=== PATIENT | male | born 1940 | race Caucasian/White ===

== ENCOUNTER 2018-07-03 09:22 | Inpatient (IN) | payer MEDICARE, OTHER ==
[2018-07-03] VITALS (390 sets, daily range): BP systolic 110–127; BP diastolic 71–79; PULSE 76–92; TEMP 97.6–98.1; O2SAT 85–94
[~2018-07-03] VITALS: Ht 193 cm; Wt 108.1 kg
[2018-07-03] MEDS ORDERED: ASPIRIN 81M81 MG/TA2 PO (09:36)
[2018-07-03] MEDS ORDERED: MASON NATURAL1200 MG PO (09:36)
[2018-07-03] MEDS ORDERED: NORVASC 10MG10 MG PO (09:36)
[2018-07-03] MEDS ORDERED: GLUCOPHAGE1000 MG PO (09:36)
[2018-07-03] MEDS ORDERED: COZAAR100 MG PO (09:37)
[2018-07-03] MEDS ORDERED: ZOCOR 20MG20 MG PO (09:37)
[2018-07-03] MEDS ORDERED: OYSCO 500 + D 51 TAB PO (09:38)
[2018-07-03 10:00] LABS: PROTHROMBIN TIME 11.9 SECONDS (9.7-12.8)
[2018-07-03 10:01] LABS: BASO % 0.4 % (0.0-2.0); EOS # 0.3 (0.0-0.7); EOS % 3.4 % (0-4.0); GRAN # 4.2 (1.4-6.5); GRAN % 56.5 % (42.2-75.2); HEMATOCRIT 47.5 % (42.0-52.0); HEMOGLOBIN 15.8 g/dl (13.5-18.0); LYMPH # 2.4 (1.2-3.4); LYMPH % 32.6 % (20.0-51.0); MEAN CELL VOLUME 83 fl (80.0-100.0); MEAN CORPUSCULAR HEMOGLOBIN 28 pg (27.0-31.0); MEAN CORPUSCULAR HGB CONC 33 g/dl (33.0-37.0); MEAN PLATELET VOLUME 11.9 fl (7.4-10.4); MONO # 0.5 (0.1-0.6); MONO % 6.8 % (1.7-9.3); PLATELET COUNT 251 K/mm3 (130-400); RED BLOOD COUNT 5.74 M/mm3 (4.20-5.60); REDCELL DISTRIBUTION WIDTH-CV 14.1 % (11.5-14.5)
[2018-07-03 10:07] LABS: ALANINE AMINOTRANSFERASE 33 U/L (21-72); ALBUMIN 4.4 gm/dL (3.5-5.0); ALKALINE PHOSPHATASE 86 U/L (50-136); ANION GAP 14 mmol/L (7-16); AST,SGOT 29 U/L (15-37); BILIRUBIN,TOTAL 0.5 mg/dL (0.0-1.0); BLOOD UREA NITROGEN 18 mg/dL (9-20); CALCIUM 9.8 mg/dL (8.4-10.2); CARBON DIOXIDE 23 mmol/L (22-30); CHLORIDE 102 mmol/L (98-107); GLUCOSE 274 mg/dL (74-106); LIPASE 100 U/L (23-300); POTASSIUM 4.9 mmol/L (3.4-5.0); SODIUM 139 mmol/L (137-145); TOTAL PROTEIN 7.5 gm/dL (6.4-8.2)
[2018-07-03 10:52] LABS: TROPONIN-I < 0.012 ng/mL (0.000-0.035)
--- NOTE | 2018-07-03 12:15 | NUR ---
Cardizem infusing at 15mg/hr on arrival, no change at this time.
--- NOTE | 2018-07-03 12:15 | NUR ---
Patient admitted to ICU 7 via cart from ED with RN at side. Stands and transferred to bed. Sl. off balance with transfer. Monitors applied, continues to be in Afib with controlled rate. [place] to room, call light given. to bedside and admission assessment complete.
[2018-07-03] MEDS ORDERED: REFRESH OPTIVE10 M2 OP (13:52)
--- NOTE | 2018-07-03 18:20 | NUR ---
Bedside report given to Brianna BARNEY
--- NOTE | 2018-07-03 19:30 | NUR ---
Assessment complete; reports some pressure to left chest with inspiration. States it is much improved since arrival to the unit and starting the cardizem. Unable to rate it on number scale. Continues to be in sinus rhythm on cardizem drip. tooth brush and wet wipes provided for personal cleansing. No concerns at this time.
[2018-07-04] VITALS (355 sets, daily range): BP systolic 112–143; BP diastolic 74–82; PULSE 62–86; TEMP 97.4–98.7; O2SAT 84–96
--- NOTE | 2018-07-04 00:30 | NUR ---
Assisted patient up to use the bathroom. Gait slighlty unsteady; non-slip socks and gait belt utilized.
[2018-07-04 05:38] LABS: BASO % 0.5 % (0.0-2.0); EOS # 0.2 (0.0-0.7); EOS % 3.6 % (0-4.0); GRAN # 2.7 (1.4-6.5); HEMATOCRIT 43.6 % (42.0-52.0); HEMOGLOBIN 14.8 g/dl (13.5-18.0); LYMPH # 2.4 (1.2-3.4); LYMPH % 41.2 % (20.0-51.0); MEAN CELL VOLUME 81 fl (80.0-100.0); MEAN CORPUSCULAR HEMOGLOBIN 28 pg (27.0-31.0); MEAN CORPUSCULAR HGB CONC 34 g/dl (33.0-37.0); MEAN PLATELET VOLUME 11.4 fl (7.4-10.4); MONO # 0.4 (0.1-0.6); MONO % 7.4 % (1.7-9.3); PLATELET COUNT 196 K/mm3 (130-400); RED BLOOD COUNT 5.39 M/mm3 (4.20-5.60)
[2018-07-04 05:47] LABS: ANION GAP 8 mmol/L (7-16); BLOOD UREA NITROGEN 18 mg/dL (9-20); CALCIUM 8.9 mg/dL (8.4-10.2); CARBON DIOXIDE 23 mmol/L (22-30); CHLORIDE 106 mmol/L (98-107); CHOLESTEROL 133 mg/dL (120-200); CHOLESTEROL RISK RATIO 3.5; CREATININE, serum 0.87 (0.66-1.25); GLUCOSE 127 mg/dL (74-106); HDL CHOLESTEROL 37 mg/dL; LDL CHOLESTEROL 58 mg/dL; POTASSIUM 4.3 mmol/L (3.4-5.0); SODIUM 137 mmol/L (137-145); TRIGLYCERIDE 189 mg/dL
[2018-07-04 06:00] LABS: TROPONIN-I < 0.012 ng/mL (0.000-0.035)
--- NOTE | 2018-07-04 07:15 | NUR ---
Bedside report given to ECTOR Gipson. Patient care transfered.
--- NOTE | 2018-07-04 08:30 | NUR ---
0830:While recieving ECHO and talking with MD Cathleen pt began to have slurred speech and difficulty speaking and finding words. MD Helen notified. Neurological assessment completed. 0841:MD Helen at bedside - speech symptoms have resoloved. CT ordered. [address] scan - negative findings reported to MD Helen from radiologist. 1020:mechatronics technician here to picked edge sewing machine operator pt to brain MRI and Carotid ultrasound. 1115: pt arrived back on unit. Scans completed without difficulty. VSS. Call light within reach. Pt remains asymptomatic.
[2018-07-04 09:16] LABS: PROTHROMBIN TIME 11.9 SECONDS (9.7-12.8)
[2018-07-04 09:33] LABS: PARTIAL THROMBOPLASTIN TIME 39.2 SECONDS (26.0-37.0)
--- NOTE | 2018-07-04 15:22 | NUR ---
JUANITO arizmendi met with the patient to discuss discharge plan. The patient lives in [place] with his (Roger). The patient does not use any assistive devices at home and reports indpendence with ADLs. The patient's PCP is Dr. Easton Mcknight and he receives his medications from [facility]. The patient states that he has a completed DPOA-HC completed with Dr. Mcknight's office. JUANITO arizmendi to request a copy. The patient plans to return home upon discharge. Patient is expected to move up to the floor today, 07/04. No identified needs at this time. JUANITO to continue to follow and follow up with PT/OT for recommendations.
--- NOTE | 2018-07-04 18:19 | NUR ---
Report phoned to ECTOR Hall
--- NOTE | 2018-07-04 22:54 | NUR ---
Patient assessed. Denies having pain and discomfort. Voices no needs or concenrs at this time. Speach clear, pupils round and react equally and immediately to light, hand consumer experience consultant strong and equal, alert and oriented x 4, gait is steady. Periperal IV to right forearm patent, and without redness, warmth, swelling, and pain. Resting in recliner watching TV at this time. call light is within reach.
[2018-07-05 00:24] VITALS: BP 138/79; PULSE 83; TEMP 98.7
[2018-07-05 04:20] VITALS: BP 121/79; PULSE 75; TEMP 97.6
--- NOTE | 2018-07-05 05:57 | NUR ---
Patient has denied having pain and discomfort throughout the night. Has voiced no needs or concerns. Resting in bed with eyes closed at this time. Call light is within reach.
--- NOTE | 2018-07-05 07:15 | NUR ---
Received report, patient is up in recliner eating breakfast. States he is feeling great and that he is hoping to be discharged today. Denies having any pain. Call light is within reach.
[2018-07-05 07:56] VITALS: BP 141/71; PULSE 81; TEMP 98.1
--- NOTE | 2018-07-05 09:34 | NUR ---
Initial visit; Patient thanked Computer Numerical Control Operator for looking in on him and offering God's blessings. Patient states he is doing "ok".
[2018-07-05] MEDS ORDERED: ELIQUIS 5MG PO (10:19)
[2018-07-05] MEDS ORDERED: LOPRESSOR 225 MG/TAB PO (10:19)
[2018-07-05 11:59] VITALS: BP 132/81; PULSE 66; TEMP 97.9
--- NOTE | 2018-07-05 15:35 | NUR ---
Patient escorted out to car at front entrance VIA wheelchair. All belongings sent with patient along with discharge information that he verbalized with understanding.
== END 2018-07-05 13:00 | disposition home or self-care (01) | DRG 309 ==
LOC: COL.ER 09:22 → ICU 11:06 → MEDICAL 07-04 18:43
PROVIDERS: Emergency Medicine; Physician Assistant; ADMIT Internal Medicine
DX: I48.91 Unspecified atrial fibrillation (principal); G45.9 Transient cerebral ischemic attack, unspecified; I10 Essential (primary) hypertension; E11.40 Type 2 diabetes mellitus with diabetic neuropathy, unspecified; E78.5 Hyperlipidemia, unspecified; Z87.891 Personal history of nicotine dependence
CPT/HCPCS: OP; 99223-AI; 99239; A9585; J1650; J1815; J7030

== ENCOUNTER 2019-01-06 10:06 | Emergency (ER) | payer MEDICARE, OTHER ==
[~2019-01-06] VITALS: Ht 185.4 cm; Wt 104.5 kg
[~2019-01-06 10:06] MED LIST: ASPIRIN 81M81 MG/TA2 PO; COZAAR100 MG PO; ELIQUIS 5MG PO; GLUCOPHAGE1000 MG PO; LOPRESSOR 225 MG/TAB PO; MASON NATURAL1200 MG PO; NORVASC 10MG10 MG PO; OYSCO 500 + D 51 TAB PO; REFRESH OPTIVE10 M2 OP; ZOCOR 20MG20 MG PO
[2019-01-06 10:10] VITALS: BP 127/58; TEMP 97.8
[2019-01-06 12:02] VITALS: PULSE 61
== END 2019-01-06 12:02 | disposition home or self-care (01) ==
LOC: COL.ER 10:06
DX: S91.102A Unspecified open wound of left great toe without damage to nail, initial encounter (principal); I48.91 Unspecified atrial fibrillation; E78.5 Hyperlipidemia, unspecified; E11.9 Type 2 diabetes mellitus without complications; Z79.01 Long term (current) use of anticoagulants; Z79.84 Long term (current) use of oral hypoglycemic drugs; W22.8XXA Striking against or struck by other objects, initial encounter; Y92.009 Unspecified place in unspecified non-institutional (private) residence as the place of occurrence of the external cause

== ENCOUNTER 2020-02-10 12:34 | Observation (INO) | payer MEDICARE, OTHER ==
[~2020-02-10] VITALS: Ht 185.4 cm; Wt 121.6 kg
[~2020-02-10 12:34] MED LIST changes: +AMARYL 2MG T2 MG/TAB PO; +CALCIUM CARB W/1 TA1 PO; +COLACE 100100 MG/CAP PO; +LOPRESSOR 550 MG/TAB PO; +NORCO 325 MG-51 TAB PO; +NORVASC 5MG5 MG/TAB PO; +ULTRAM 50MG TAB50 MG PO
[2020-02-10 13:11] LABS: BASO % 0.2 % (0.0-2.0); EOS # 0.1 (0.0-0.7); EOS % 1.3 % (0-4.0); GRAN # 7.6 (1.4-6.5); GRAN % 77.7 % (42.2-75.2); HEMATOCRIT 37.7 % (42.0-52.0); HEMOGLOBIN 12.7 g/dl (13.5-18.0); LYMPH % 10.2 % (20.0-51.0); MEAN CELL VOLUME 81 fl (80.0-100.0); MEAN CORPUSCULAR HEMOGLOBIN 27 pg (27.0-31.0); MEAN CORPUSCULAR HGB CONC 34 g/dl (33.0-37.0); MEAN PLATELET VOLUME 11.5 fl (7.4-10.4); MONO % 10.2 % (1.7-9.3); PLATELET COUNT 243 K/mm3 (130-400); RED BLOOD COUNT 4.68 M/mm3 (4.20-5.60)
[2020-02-10 13:13] LABS: INR 1.6 (0.8-3.0)
[2020-02-10 13:16] LABS: ALBUMIN 3.9 gm/dL (3.5-5.0); BILIRUBIN,TOTAL 0.9 mg/dL (0.0-1.0); CALCIUM 9.1 mg/dL (8.4-10.2); CREATININE, serum 0.99 (0.66-1.25); MAGNESIUM 2.2 mg/dL (1.6-2.3); PARTIAL THROMBOPLASTIN TIME 31.9 SECONDS (26.0-37.0); POTASSIUM 4.3 mmol/L (3.4-5.0)
[2020-02-10 13:43] LABS: TROPONIN-I 0.049 ng/mL (0.000-0.035)
[2020-02-10 13:46] LABS: TSH w REFLEX 2.57 uIU/mL (0.465-4.680)
[2020-02-10 20:51] LABS: TROPONIN-I 0.047 ng/mL (0.000-0.035)
[2020-02-10 21:49] VITALS: BP 143/65; PULSE 72; TEMP 97.9
[2020-02-10 23:26] VITALS: BP 123/60; PULSE 65; TEMP 98
--- NOTE | 2020-02-11 03:13 | NUR ---
Pt arrived on floor around 2129. Pt admission procedure completed and charted. Pt has deminished heart and lung sound. Pt denies N/V/D, numbness, tingling, SOA, pain. Pt is settled on his bed, call light is on reach. No further needs at this time.
[2020-02-11 04:00] VITALS: BP 119/64; PULSE 76; TEMP 98.3
--- NOTE | 2020-02-11 06:05 | NUR ---
Pt had an uneventful night. Slept through out the night. No further needs at this time.
[2020-02-11 06:43] LABS: BASO % 0.3 % (0.0-2.0); EOS # 0.4 (0.0-0.7); EOS % 5.7 % (0-4.0); GRAN # 4.5 (1.4-6.5); HEMOGLOBIN 11.7 g/dl (13.5-18.0); LYMPH # 1.5 (1.2-3.4); LYMPH % 20.6 % (20.0-51.0); MEAN CELL VOLUME 83 fl (80.0-100.0); MEAN CORPUSCULAR HEMOGLOBIN 28 pg (27.0-31.0); MEAN CORPUSCULAR HGB CONC 34 g/dl (33.0-37.0); MEAN PLATELET VOLUME 11.8 fl (7.4-10.4); MONO # 0.6 (0.1-0.6); PLATELET COUNT 216 K/mm3 (130-400)
[2020-02-11 06:51] LABS: HEMATOCRIT 34.7 % (42.0-52.0)
[2020-02-11 06:58] LABS: CALCIUM 8.6 mg/dL (8.4-10.2); CREATININE, serum 0.78 (0.66-1.25); POTASSIUM 3.9 mmol/L (3.4-5.0)
--- NOTE | 2020-02-11 07:00 | NUR ---
Report with ECTOR Snyder. Pt resting in bed with eyes closed, resp even and unlabored. Call light in reach.
[2020-02-11 08:59] VITALS: BP 135/61; PULSE 89; TEMP 97.8
--- NOTE | 2020-02-11 09:00 | NUR ---
Assessment complete. Pt sitting up in bed, A&O x 3. Physical assessment unremarkable. Pt reports pain to right pelvic region 2 out of 10 that increases significantly with movement of legs. Saline lock IV to left AC without s/s of complications. POC reviewed with pt. No further needs reported. Call light in reach.
[2020-02-11 12:28] VITALS: BP 132/80; PULSE 76; TEMP 97.8
--- NOTE | 2020-02-11 12:50 | NUR ---
Lead Sql Developer attended clinical rounds with the team. Patient is a readmit and was hospitalized from 02/06/20-02/09/20 for a right side pelvic fracture. Patient was discharged to [facility]. Patient presented to the ED last night and was admitted as [facility] could not accept last night. JUANITO met with patient who advised he would like to get back to [facility] if possible. JUANITO contacted Con at [facility] and faxed clinical updates. After review, Con advised they can accept patient back today and would not need a COVID test. JUANITO coordinated with Con to set transport time for 1330. JUANITO provided transport time to patient and RN, Janice. JUANITO contacted patient's , Willow to provide update and transport time. JUANITO faxed discharge orders. No additional needs at this time.
[2020-02-11 12:58] VITALS: BP 132/80; PULSE 76; TEMP 97.8
--- NOTE | 2020-02-11 13:19 | NUR ---
Report called to ECTOR Mcgee at [facility].
--- NOTE | 2020-02-11 13:35 | NUR ---
Pt discharged to [facility] via . Discharge paperwork with transportation staff.
== END 2020-02-11 13:40 ==
LOC: COL.ER 12:34 → MEDICAL 18:17
PROVIDERS: Emergency Medicine; Nurse Practitioner Family
DX: R55 Syncope and collapse (principal); I25.2 Old myocardial infarction; S32.591A Other specified fracture of right pubis, initial encounter for closed fracture; S22.41XA Multiple fractures of ribs, right side, initial encounter for closed fracture; I10 Essential (primary) hypertension; E78.5 Hyperlipidemia, unspecified; E11.9 Type 2 diabetes mellitus without complications; Z86.73 Personal history of transient ischemic attack (TIA), and cerebral infarction without residual deficits; Z79.01 Long term (current) use of anticoagulants; Z87.891 Personal history of nicotine dependence; I48.0 Paroxysmal atrial fibrillation; Z90.49 Acquired absence of other specified parts of digestive tract; Z79.4 Long term (current) use of insulin
CPT/HCPCS: G0378; J1160; J1815; J7030

== ENCOUNTER → 2020-06-03 | Outpatient (CLI) | payer MEDICARE, OTHER | LOC: COL.RAD 08:29 | DX: I63.9 Cerebral infarction, unspecified (principal); R47.1 Dysarthria and anarthria | CPT/HCPCS: A9585 ==

== ENCOUNTER 2023-07-12 10:15 | Inpatient (IN) | payer MEDICARE, OTHER ==
[~2023-07-12] VITALS: Ht 185.4 cm; Wt 106.5 kg
[~2023-07-12 10:15] MED LIST changes: +AMARYL4 MG PO; +CALCIUM 600-D 61 TAB PO; +GLUCOPHAGE500 MG/TAB PO; +HYZAAR 12.5 MG-1 TAB PO; +LOPRESSOR100 MG PO
[2023-07-12] MEDS ORDERED: VITAMIN B11000 MCG/M IM (12:51)
[2023-07-12] MEDS ORDERED: Naloxone 0.4 MG/ML VIAL IV PRN (14:30)
[2023-07-12] MEDS ORDERED: Acetaminophen 325 MG TAB PO PRN (14:30)
[2023-07-12] MEDS ORDERED: Docusate Sodium 100 MG CAP PO PRN (14:30)
[2023-07-12] MEDS ORDERED: Sennosides/Docusate 8.6-50 MG TAB PO PRN (14:30)
[2023-07-12] MEDS ORDERED: Polyethylene Glycol 3350 17 GM PDS PO PRN (14:30)
[2023-07-12 14:33] VITALS: BP 114/67; PULSE 73; TEMP 96.5
--- NOTE | 2023-07-12 14:34 | NUR ---
New pt arrived to unit from [facility] via wheelchair accompanied by his daughter & [id number]. Pt is a/o x4, pleasant. Pt required min asst to stand from wheelchair & transfer to recliner. Gait unsteady. Pt reporting BLE weakness. All skin is intact except for skin tear to left elbow that is covered w/ a Mepilex. Pt has scattered bruising to BUE from "IV's & blood" per pt. Daughter taking pt's wallet home. Pt has his cellphone at the bedside. Orientation provided to room/unit. Call light in reach. Chair alarm in place.
--- NOTE | 2023-07-12 16:37 | NUR ---
Pt sitting up in recliner watching tv. Pain/discomfort denied. Other needs denied. Call light in reach. Chair alarm in place.
[2023-07-12] MEDS ORDERED: metFORMIN 500 MG TAB PO SCH (17:00)
[2023-07-12 18:00] VITALS: BP 125/72; PULSE 93; TEMP 97.4
[2023-07-12 18:13] VITALS: BP_SYST 125
--- NOTE | 2023-07-12 18:29 | NUR ---
Min asst provided as pt stood from recliner to FWW. CGA provided as pt ambulated to the bathroom. Gait unsteady w/ FWW. Pt back to recliner after toileting w/ BLE elevated on the footrest. Pain/discomfort denied. Call light in reach. Chair alarm in place.
[2023-07-12 19:33] VITALS: BP_SYST 125
[2023-07-12] MEDS ORDERED: Simvastatin 20 MG **** subs to Atorvastatin 10 MG PO SCH (21:00)
[2023-07-12] MEDS ORDERED: Metoprolol Tartrate 50 MG TAB PO SCH (21:00)
[2023-07-12] MEDS ORDERED: Atorvastatin 10 MG TAB PO SCH (21:00)
[2023-07-12] MEDS ORDERED: Apixaban 5 MG TAB PO SCH (21:00)
--- NOTE | 2023-07-12 23:53 | NUR ---
patient lyin gin bed, alert and oriented x4. pt denies chest pain and shortness of breath. scattered bruising noted on upper extremities, right elbow skin tear with mepilex, clean dry and intact, right foot drop noted. pt has no further needs, qiestions or concerns at this time. fall precautions in place, call light within reach. will continue to monitor.
[2023-07-13 05:59] VITALS: BP 124/73; PULSE 63; TEMP 98
[2023-07-13 07:20] VITALS: BP_SYST 124
[2023-07-13] MEDS ORDERED: Losartan 50 MG TAB PO SCH (09:00)
[2023-07-13] MEDS ORDERED: amLODIPine 10 MG TAB PO SCH (09:00)
--- NOTE | 2023-07-13 09:16 | NUR ---
PT LAYING IN BED,ALERT AND OREINTEDX4. NO COMPLAINTS OF PAIN AT THIS TIME. PT HAD A BOWEL MOVEMENT THIS AM. ASSESSED PT AND GAVE MORNING MEDS. CALL LIGHT WITHIN REACH.
[2023-07-13 16:29] VITALS: BP 99/60; PULSE 103; TEMP 97.6
--- NOTE | 2023-07-13 16:37 | NUR ---
Manager Ed met with patient to complete initial intake. Patient lives in [place] with his , Willow (ph#[phone]) and also has a daughter, Arely (ph#[phone]). Patient sees Dr. Mcknight for primary care and obtains medications from either [facility] or [facility]. Patient has two sets of stairs in the home and has two walkers placed to assist him on each level. Patient stated the home is built into a hill. Patient has a rollator available here but stated PT advised it was too narrow. Patient advised he normally drives himself to medical appointments and family accompanies him. Patient has DPOA-HC in EMR designating Willow. SW contacted Willow to introduce herself and explain role on rehab team. SW will continue to follow for discharge recommendations and updates.
[2023-07-13 19:32] VITALS: BP_SYST 99
[2023-07-13 19:42] VITALS: BP 111/66
--- NOTE | 2023-07-13 22:04 | NUR ---
patient lying in bed, alert and oriented x4. pt denies chest pain and shortness of breath. scattered bruising on upper extremities, right elbow skin tear with mepilex dressing noted clean dry and intact. pt has no further needs, questions, or concerns at this time. fall precautions in place, call light within reach. will continue to monitor.
[2023-07-14] VITALS (16 sets, daily range): BP systolic 95–135; BP diastolic 48–77; PULSE 66–139; TEMP 97.4–97.8
--- NOTE | 2023-07-14 06:57 | NUR ---
Shift report received from night RN. No events reported overnight. Pt awake & resting supine in bed. Denies pain. Denies other needs. Call light in reach. Bed alarm on.
--- NOTE | 2023-07-14 08:51 | NUR ---
Pt called nurse asking for "pulse check". HR 118 apical. Pt reports his left arm feels "numb & heavy" & that this is a new sx for him. Chest pain, MOULTON, dizziness, lightheadedness denied. Hospitalist notified. Labs & EKG ordered by Hospitalist. RT notified of EKG order.
--- NOTE | 2023-07-14 09:01 | NUR ---
RT & Lab at the bedside.
--- NOTE | 2023-07-14 09:39 | NUR ---
Cardiology PA at the bedside for eval.
[2023-07-14 09:40] LABS: HEMOGLOBIN 14.9 g/dl (13.5-18.0); MEAN CELL VOLUME 80 fl (80.0-100.0); MEAN CORPUSCULAR HEMOGLOBIN 27 pg (27-31); MEAN CORPUSCULAR HGB CONC 34 g/dl (33.0-37.0); MEAN PLATELET VOLUME 11.9 fl (7.4-10.4); PLATELET COUNT 283 K/mm3 (130-400); RED BLOOD COUNT 5.48 M/mm3 (4.20-5.60); REDCELL DISTRIBUTION WIDTH-CV 13.6 % (11.5-14.5)
[2023-07-14 10:13] LABS: CALCIUM 9.2 mg/dL (8.4-10.2); CREATININE, serum 1.28 mg/dL (0.72-1.25); POTASSIUM 4.2 mEq/L (3.5-4.5)
[2023-07-14 10:24] LABS: TROPONIN-I 0.044 ng/mL (0.00-0.033)
--- NOTE | 2023-07-14 10:27 | NUR ---
Trop 0.044. Result reported to Dr. Fraga & TIFF Knight.
[2023-07-14] MEDS ORDERED: Amiodarone 200 MG TAB PO SCH (11:15)
[2023-07-14] MEDS ORDERED: Glucagon 1 MG VIAL IM PRN (11:45)
[2023-07-14] MEDS ORDERED: Dextrose (Glucose) 15 GM (4 x 3.75 GM) Chewable TABLET PACK PO PRN (11:45)
[2023-07-14] MEDS ORDERED: Dextrose 50% Water 25 GM/50 ML SYRINGE IV PRN (11:45)
[2023-07-14] MEDS ORDERED: Insulin Lispro (HumaLOG) SQ SCH (12:00)
--- NOTE | 2023-07-14 12:04 | NUR ---
Pt resting supine in bed. IV Amiodarone bolus & PO doses administered as ordered approx 30 min ago. Radial pulse 66. Pt denies pain/discomfort. Reports continued L arm/hand numbness & heaviness that is "getting better". Will continue to monitor.
--- NOTE | 2023-07-14 13:24 | NUR ---
Pt off unit w/ OT.
--- NOTE | 2023-07-14 14:04 | NUR ---
Pt back in room after working w/ OT. Pt reporting dizziness & continues to report that L arm heaviness & tingling still present but is "getting better". BP 95/84, HR 74. INT RFA w/ redness, tenderness, swelling. Pt sitting up in recliner w/ BLE elevated on footrest. Will continue to monitor.
--- NOTE | 2023-07-14 15:33 | NUR ---
Dr. Fields at bedside for eval.
--- NOTE | 2023-07-14 15:34 | NUR ---
Adoption Specialist contacted patient's , Willow and daughter, Arely to discuss scheduling a family meeting. Arely stated they will call back Monday with a time that works for them. SW met with patient who stated he has some cardiac issues this morning but feeling better. No questions or concerns at this time.
--- NOTE | 2023-07-14 22:09 | NUR ---
Shift assessment completed- see documentation. Upon entering pts room, he had just finished vomiting. He stated that he felt nauseous before dinner and vomited shortly after eating. This was his second time vomiting. He denies any other pain or discomfort. When asked, he stated that he did not want anything to help with the nausea. PM meds were adminsitered as ordered. Pt tolerated well. He denies any other needs at this time. I attempted to call JAN Andrea with this information. Still awaiting a return call.
[2023-07-15] VITALS (11 sets, daily range): BP systolic 103–145; BP diastolic 60–76; PULSE 65–74; TEMP 97.4–97.9
--- NOTE | 2023-07-15 08:46 | NUR ---
PT LAYING IN BED, ALERT AND ORIENTEDX4. NO COMPLAINTS OF PAIN AT THIS TIME. HR RATE IS NORMAL SINUS AT THIS TIME. PT TOLERATED BREAKFAST AND NO LONGER FEELS NAUSEAOUS. NO OTHER COMPLAINTS. ASSESSED AND GAVE MORNING MEDS. CALL LIGHT WITHIN REACH.
--- NOTE | 2023-07-15 09:37 | NUR ---
PT GOT NAUSEAUS AND STARTED THROWING UP SOME BILE WHILE WORKING WITH THERAPY. THERAPY BROUGHT PT BACK TO ROOM AND PT IS NOW RESTING IN CHAIR AND SAYS HE IS NOT FEELING NAUSAUS ANYMORE. PT FEELS WEAKER THROUGH THE WHOLE BODY. CHECKED HEART RATE, STILL NORMAL SINUS RHYTH.
[2023-07-15] MEDS ORDERED: Ondansetron 4 MG/2 ML VIAL IV PRN (12:45)
--- NOTE | 2023-07-15 12:58 | NUR ---
PT HAS BEEN NAUSEOUS OFF AND ON ALL DAY. CALLED DR. SAM TO GET AN ORDER FOR GE.
--- NOTE | 2023-07-15 17:30 | NUR ---
PT HAS NOT HAD ANY NAUSEA OR VOMMITTING EPISODES SINCE TAKING ZOFRAN TODAY.
[2023-07-16] VITALS (12 sets, daily range): BP systolic 104–129; BP diastolic 59–77; PULSE 57–67; TEMP 97.7–98.1
--- NOTE | 2023-07-16 05:56 | NUR ---
PT ALERT AND ORIENTED, DENIED ANY PAIN OR NAUSEA AT THE START OF THE SHIFT. AROUND 2129 CALLED OUT W C/O NAUSEA AND VOMITTING, ZOFRAN GIVEN ORDERED WELL SCHEDULED MEDICATIONS. PT IS ON TELE IN NSR. SLEPT WELL THROUGHOUT THE NIGHT. CALL LIGHT WITHIM REACH, BED ALARM ENGAGED.
--- NOTE | 2023-07-16 09:11 | NUR ---
PT LAYING IN BED, ALERT AND ORIENTEDX4. NO COMPLAINTS OF PAIN AT THIS TIME. PT DOES COMPLAIN OF NAUSEA. GAVE ZOFRAN. PT STATES THAT HE "FEELS WEAKER TODAY WHEN WALKING". HR IS IN NORMAL SINUS RHYTHM. ASSESSED AND GAVE MORNING MEDS. CALL LIGHT WITHIN REACH.
[2023-07-17] VITALS (11 sets, daily range): BP systolic 101–142; BP diastolic 48–72; PULSE 53–73; TEMP 97.4–98.1
--- NOTE | 2023-07-17 05:33 | NUR ---
PT ALERT AND ORIENTED, SLEPT WELL OVERNIGHT. NO C/O NAUSEA, STATES HE THINKS THE ZOFRAN IS WHAT CAUSED HIS DECLINE AND DOES NOT THINK HE WILL WANT TO TAKE ANYMORE. ON TELE NSR. VSS. CALL LIGHT WITHIN REACH, BED ALARM ENGAGED. NO FUTHER NEEDS AT THIS TIME.
--- NOTE | 2023-07-17 09:20 | NUR ---
Patient awake, alert and oriented. Denies chest pain, palpitations or dizziness. Telemetry in place, VS being monitored Q4 hours. C/O a little nausea this AM but able to tolerate breakfast without emesis. States he "just feels weak." Does have difficulty at times voicing what he is trying to say, stuttering at times. Agreeable to plan with therapy this AM.
--- NOTE | 2023-07-17 13:31 | NUR ---
Pt c/o nausea when getting up with therapy. Dry heaving but no emesis. Pt declines offer for nausea medication. Has tolerated breakfast and lunch with no emesis today. Pt agreeable to continuing with therapy.
--- NOTE | 2023-07-17 14:27 | NUR ---
egg factory worker contacted patient's family to schedule the family meeting for patient. Family expressed they spoke with patient earlier and he stated he was not sure with how he was feeling if he would be able to do his therapies today and may be moving to another side of the hospital. SW expressed they would like to schedule the family meeting as patient will likely remain in [facility] and if he does move they could cancel the meeting. JUANITO scheduled the meeting for at 9 am and the family will be present via telephone. JUANITO notified Katia, IPR director.
--- NOTE | 2023-07-17 14:38 | NUR ---
Admission QIM scores were reviewed by the team. Code of 88 chosen for oral hygiene was determined by team discussion to be the most usual performance before interventions for this patient during the assessment period. Code of 3 chosen for sit to stand was determined by team discussion to be the most usual performance for this patient during the discharge assessment period. Code of 3 chosen for walking 10 feet was determined by team discussion to be the most usual performance for this patient during the discharge assessment period. Code of 3 chosen for walking 150 feet was determined by team discussion to be the most usual performance before interventions for this patient during the assessment period.--Katia Veliz, PD
--- NOTE | 2023-07-17 20:00 | NUR ---
PT A&O X4 SITTING IN CHAIR. VSS. PT DENYING PAIN OR N/V. INT TO RT FOREARM PATENT. PT DENIES OTHER NEED. CALL LIGHT IN RECH & CHAIR ALARM ON
[2023-07-18] VITALS (9 sets, daily range): BP systolic 107–134; BP diastolic 56–75; PULSE 57–61; TEMP 97.6–97.8
--- NOTE | 2023-07-18 07:22 | NUR ---
Shift report received from night RN. No events reported overnight. Pt awake & lying supine in bed. Reports sleeping "ok" overnight. Denies needs at this time. Call light in reach. Bed alarm on.
--- NOTE | 2023-07-18 07:48 | NUR ---
Miralax given per PRN order per pt report of no BM x 3 days.
--- NOTE | 2023-07-18 09:06 | NUR ---
Pt off unit w/ PT.
--- NOTE | 2023-07-18 11:39 | NUR ---
Pt sitting up in recliner w/ BLE elevated on footrest. Pt back from Group Therapy. HR, BP WNL. PO Amiodarone given as scheduled. Pt denies pain/discomfort. Denies MOULTON, dizziness, palpitations. Denies other needs.
--- NOTE | 2023-07-18 16:23 | NUR ---
Die Cast Operator met with patient to check in and notify him that family meeting was scheduled for at 0900. Patient had no questions or concerns at this time.
--- NOTE | 2023-07-18 17:29 | NUR ---
Pt sitting up to eat dinner & began to dry heave & spit up clears. Pt denies nausea, abd pain. He reports that taking his first bite of dinner causing him to dry heave. Dr. Fraga at the bedside. Zofran given per PRN order. Will continue to monitor.
--- NOTE | 2023-07-18 18:35 | NUR ---
Pt report relief of the urge to vomit. Denies abd. pain. Denies other needs. Call light in reach. Chair alarm in place.
--- NOTE | 2023-07-18 21:00 | NUR ---
Pt a&o x4 sitting in recliner watching tv. Assessment complete & hs meds given per mar. Denies pain or n/v. Drsg to rt elbow intact. Pt denies further needs. Call light in reach
[2023-07-19 05:46] VITALS: BP 131/70; PULSE 57; TEMP 97.9
--- NOTE | 2023-07-19 06:06 | NUR ---
PT RESTING IN BED WITH UNLABORED RESP. CALL LIGHT IN REACH
[2023-07-19 06:17] VITALS: BP_SYST 131
--- NOTE | 2023-07-19 06:54 | NUR ---
Shift report received from night RN. No events reported overnight. Pt reports being unable to sleep since midnight after night RN came in room. Pt sitting up in bed ordering breakfast. Denies pain/discomfort. Denies nausea, abd. pain. Other needs denied. Call light in reach. Bed alarm on.
--- NOTE | 2023-07-19 09:24 | NUR ---
OT alerting RN that pt "doesn't seem well". Upon room entry, pt lying supine in bed. Face is flushed. Pt stating that he feels "tired & off balance". Pt is a/o x 4. Denies pain/discomfort. Denies chest pain, MOULTON, nausea. Pupils equal & reactive. Hand publicity manager strength equal. Dr. Fraga at the bedside for eval. Plan to hold on therapy for now.
[2023-07-19 09:27] VITALS: BP 141/73; PULSE 66
[2023-07-19 10:02] LABS: BASO % 0.4 % (0.0-2.0); EOS # 0.2 K/mm3 (0.0-0.7); GRAN # 3.7 K/mm3 (1.4-6.5); GRAN % 65.9 % (42.2-75.2); HEMATOCRIT 40.5 % (42.0-52.0); HEMOGLOBIN 13.8 g/dl (13.5-18.0); LYMPH # 1.3 K/mm3 (1.2-3.4); LYMPH % 23.6 % (20.0-51.0); MEAN CELL VOLUME 80 fl (80.0-100.0); MEAN CORPUSCULAR HEMOGLOBIN 27 pg (27-31); MEAN CORPUSCULAR HGB CONC 34 g/dl (33.0-37.0); MEAN PLATELET VOLUME 11.4 fl (7.4-10.4); MONO # 0.4 K/mm3 (0.1-0.6); MONO % 6.9 % (1.7-9.3); PLATELET COUNT 267 K/mm3 (130-400); RED BLOOD COUNT 5.06 M/mm3 (4.20-5.60); REDCELL DISTRIBUTION WIDTH-CV 13.9 % (11.5-14.5)
[2023-07-19 10:24] LABS: ALBUMIN 3.5 g/dL (3.4-4.8); BILIRUBIN,TOTAL 0.6 mg/dL (0.2-1.2); CALCIUM 9.4 mg/dL (8.4-10.2); CREATININE, serum 1.2 mg/dL (0.72-1.25); POTASSIUM 4.1 mEq/L (3.5-4.5); TOTAL PROTEIN 6.5 g/dl (6.2-8.1)
[2023-07-19 11:35] VITALS: BP 116/64; PULSE 50
--- NOTE | 2023-07-19 11:35 | NUR ---
Pt resting supine in bed. Arouses easily from sleep. Appears pale & sleepy. Remains a/o x4. Denies pain/discomfort. Denies nausea, chest tightness, dizziness, lightheadedness. Dr. Fraga aware. EKG ordered. RT notified.
--- NOTE | 2023-07-19 11:57 | NUR ---
Pt resting supine in bed w/ HOB slightly elevated. EKG completed. Dr. Fraga aware.
--- NOTE | 2023-07-19 12:59 | NUR ---
Pt requesting Miralax for no BM x 5 days. Miralax given per PRN order.
[2023-07-19 14:21] VITALS: PULSE 56
--- NOTE | 2023-07-19 14:21 | NUR ---
Pt sleeping supine in bed w/ even & unlabored resps. Radial pulse 56, strong. Call light in reach. Bed alarm on.
--- NOTE | 2023-07-19 21:00 | NUR ---
PT A&O X4 RESTING IN BED. PT REPORTS FEELING BETTER THIS EVENING. DENIES PAIN. PT AMBULATED TO RESTROOM WITH X2 ASSIST, REPORTED FEELING A LITTLE DIZZY WALKING BACK TO BED BUT WENT AWAY QUICKLY. VSS. PT DENIES OTHER NEEDS. CALL LIGHT IN REACH
--- NOTE | 2023-07-20 05:30 | NUR ---
PT RESTING IN BED W/ UNLABORED RESP. DENIES PAIN OR DIZZINESS THIS MORNING. CALL LIGHT IN REACH
[2023-07-20 05:43] VITALS: BP 121/72; PULSE 60; TEMP 97.6
[2023-07-20 06:04] VITALS: BP_SYST 121
--- NOTE | 2023-07-20 07:25 | NUR ---
PT LAYING IN BED, ALERT AND ORIENTEDX4. NO COMPLAINTS OF PAIN AT THIS TIME TIME. ASSESSED PT AND GAVE MORNING MEDS. CALL LIGHT WITHIN REACH.
[2023-07-20] MEDS ORDERED: Cyanocobalamin (Vit B-12) 1,000 MCG TAB PO SCH (09:00)
[2023-07-20] MEDS ORDERED: Meclizine 25 MG TAB PO SCH (09:30)
--- NOTE | 2023-07-20 10:41 | NUR ---
LATE ENTRY: 07/19/23 Information Technology Architect met with patient to review and provide copy of team conference notes. SW discussed with patient the concerns with him returning home and the possible need for SNF. Patient gave SW a friendly, thumbs down and stated he would prefer to return home. SW advised they would speak more about this at the family meeting tomorrow.
--- NOTE | 2023-07-20 16:25 | NUR ---
Supervisor Print Line participated in patient's family meeting which included Naresh by phone. Katia IPR Director opened the meeting by explaining it's purpose, followed by report from Physician and PT/OT/ST. At this time, patient is advised he may need to consider SNF although this is not his preference. It was discussed that patient was needing assist of two people at times and struggled with balance. Patient to be re-evaluated in a week and he is hopeful a change made in his medications will help.
[2023-07-20 17:17] VITALS: BP 126/65; PULSE 65; TEMP 97.5
[2023-07-20 17:58] VITALS: BP_SYST 126
--- NOTE | 2023-07-20 18:56 | NUR ---
RECEIVED CHANGE OF SHIFT REPORT FROM DAY SHIFT NURSE. PATIENT WITH NO NEEDS REPORTED AT TIME OF REPORT.
[2023-07-20 21:15] VITALS: BP 148/79; PULSE 63
[2023-07-21 05:57] VITALS: BP 127/69; PULSE 59; TEMP 97.9
[2023-07-21 06:00] VITALS: BP_SYST 127
--- NOTE | 2023-07-21 07:14 | NUR ---
Change of shift report given to day shift nurseJorge Alberto. Patient resting in bed, exit alarm on, call light in reach.
--- NOTE | 2023-07-21 15:25 | NUR ---
Surgical Lead met with patient to check in before the weekend. Patient stated he feels stopping the cardiac medication has helped him feel better. Patient is still hopeful to return home and does not want SNF.
[2023-07-21 17:13] VITALS: BP 100/60; PULSE 66; TEMP 97.8
[2023-07-21 18:00] VITALS: BP_SYST 100
--- NOTE | 2023-07-21 18:58 | NUR ---
Received change of shift report from day shift nurse.
[2023-07-21 20:50] VITALS: BP 122/65; PULSE 65
--- NOTE | 2023-07-21 20:53 | NUR ---
PATIENT REPORTS HAVING PASSED SMALL SOFT STOOL EARLIER TODAY
[2023-07-21] MEDS ORDERED: Sennosides/Docusate 8.6-50 MG TAB PO SCH (21:00)
[2023-07-22] MEDS ORDERED: Polyethylene Glycol 3350 17 GM PDS PO SCH (02:30)
[2023-07-22] MEDS ORDERED: Docusate Sodium 100 MG CAP PO SCH ×2 (02:30→09:00)
--- NOTE | 2023-07-22 03:46 | NUR ---
PATIENT RESTING IN BED WITH EYES CLOSED, BREATHING EVEN AND NONLABORED. EXIT ALARM ON, CALL LIGHT IN REACH. PATIENT DID NOT WAKE DURING NURSE ROUNDING.
[2023-07-22 05:36] VITALS: BP 129/73; PULSE 60; TEMP 97.5
[2023-07-22 06:00] VITALS: BP_SYST 129
--- NOTE | 2023-07-22 07:25 | NUR ---
CHANGE OF SHIFT REPORT GIVEN TO DAY SHIFT NURSENA.
--- NOTE | 2023-07-22 07:44 | NUR ---
Pt supervised as he stood from bed to FWW to ambulate to the bathroom. Gait steady w/ FWW. Pt denies pain, dizziness, nausea. Pt up to wheelchair after toileting to complete a.m. hygiene. Other needs denied. Call light in reach.
--- NOTE | 2023-07-22 09:31 | NUR ---
Pt off unit for Group Therapy.
--- NOTE | 2023-07-22 10:34 | NUR ---
Pt back in room after Group Therapy. Denies pain. Denies other needs. Call light in reach. Chair alarm in place.
--- NOTE | 2023-07-22 11:40 | NUR ---
Pt sitting up in recliner listening to music. Denies pain/discomfort. Blood sugar 72 mg/dL. Snack given w/ scheduled Miralax dose. Other needs denied. Call light in reach. Chair alarm in place.
--- NOTE | 2023-07-22 12:14 | NUR ---
Pt sleeping in recliner w/ BLE on footrest. Resps even & unlabored. Call light in reach. Chair alarm in place.
--- NOTE | 2023-07-22 15:06 | NUR ---
Pt sleeping in recliner w/ BLE elevated on footrest. Pt aroused easily from sleep. Denies pain or other needs. Call light in reach. Chair alarm in place.
[2023-07-22 16:44] VITALS: BP 105/69; PULSE 64; TEMP 97.6
--- NOTE | 2023-07-22 17:27 | NUR ---
Pt sitting up in recliner after eating 100% of dinner tray. Denies pain. Denies other needs. Call light in reach. Chair alarm in place.
--- NOTE | 2023-07-22 18:39 | NUR ---
RECEIVED CHANGE OF SHIFT REPORT FROM DAY SHIFT NURSE.
--- NOTE | 2023-07-22 20:30 | NUR ---
PATIENT AMBULATED TO BATHROOM WITH ASSIST FROM PCT WITH SOME DIFFICULTY, WAS PLACED IN WC MID WALK TO BATHROOM DUE TO WEAKNESS TO BLE. PATIENT DENIED CHEST PAIN/SOA/NAUSEA.
[2023-07-22 21:28] VITALS: BP 121/70; PULSE 64
[2023-07-23 05:22] VITALS: BP 135/77; PULSE 61; TEMP 97.9
[2023-07-23 06:16] VITALS: BP_SYST 135
--- NOTE | 2023-07-23 06:45 | NUR ---
Change of shift report given to day shift nurseAnna.
--- NOTE | 2023-07-23 06:59 | NUR ---
Shift report received from night RN. No events reported overnight. Pt sleeping supine in bed w/ even & unlabored resps. Call light in reach. Bed alarm on.
--- NOTE | 2023-07-23 07:54 | NUR ---
Pt sitting up in bed after eating 100% of breakfast independently. Pain/discomfort denied. Nausea, MOULTON, dizzines denied. Pt reports sleeping well overnight. Denies any needs. Call light in reach. Bed alarm on.
--- NOTE | 2023-07-23 07:59 | NUR ---
CGA provided as pt stood from bed to FWW to ambulate to the bathroom. Gait unsteady. Pt to recliner after toileting.
--- NOTE | 2023-07-23 09:34 | NUR ---
Pt sitting in recliner w/ BLE elevated. Denies any needs at this time. Call light in reach. Chair alarm in place.
--- NOTE | 2023-07-23 12:10 | NUR ---
Pt up to recliner eating lunch & visiting w/ a friend. Denies any needs. Call light in reach. Chair alarm in place.
--- NOTE | 2023-07-23 13:32 | NUR ---
Pt sleeping in recliner w/ even & unlabored resps. Call light in reach. Chair alarm in place.
--- NOTE | 2023-07-23 15:52 | NUR ---
Pt in recliner visiting w/ & daughter. Denies needs at this time. Call light in reach. Chair alarm in place.
--- NOTE | 2023-07-23 17:29 | NUR ---
Pt sitting up in recliner watching tv. Denies pain/discomfort. Denies other needs. Call light in reach. Chair alarm in place.
[2023-07-23 17:53] VITALS: BP 130/73; PULSE 67
--- NOTE | 2023-07-23 17:55 | NUR ---
Pt up to ambulate from bathroom to recliner w/ FWW. While ambulating pt stumbled backward & leaned backwards on FR[employer]ORTER. Pt regained balance & ambulated back to recliner w/o further incident. Chair alarm is in place. Call light in reach.
[2023-07-23 18:04] VITALS: BP_SYST 130
--- NOTE | 2023-07-23 19:00 | NUR ---
RECEIVED CHANGE OF SHIFT REPORT FROM DAY SHIFT NURSE. PATIENT RESTING IN BED, EXIT ALARM ON, CALL LIGHT IN REACH.
[2023-07-23 20:48] VITALS: BP 127/74; PULSE 60
[2023-07-24 04:45] VITALS: BP 127/67; PULSE 57; TEMP 97.7
[2023-07-24 05:00] VITALS: BP_SYST 127
--- NOTE | 2023-07-24 06:49 | NUR ---
Change of shift report given to day shift nurseBill. Patient resting in bed, exit alarm on, call light in reach.
--- NOTE | 2023-07-24 08:53 | NUR ---
PT SITTING UP IN WHEELCHAIR. NO COMPLAINTS OF PAIN AT THIS TIME. ALSO NO COMPLAINTS OF DIZZINESS OR NAUSEA. ASSESED PT AND GAVE MORNING MEDS. CALL LIGHT WITHIN REACH.
--- NOTE | 2023-07-24 15:32 | NUR ---
Furnace Combustion Analyst met with patient in room to introduce self. Patient sitting up in chair stating he feels very tired. Discussed discharge plan. Patient voicing that he wants to return home and has had [facility] in the past. Discussed it will depend upon his progress during this rehab if he can return home or possibly need SNF. Patient's and daughter arrived during meeting. Informed them of famiy meeeting scheduled for at 0900. Discharge plan: home with HH
[2023-07-24 17:37] VITALS: BP 137/80; PULSE 62; TEMP 96.4
[2023-07-24 17:59] VITALS: BP_SYST 137
--- NOTE | 2023-07-24 21:39 | NUR ---
Assisted patient to the bathroom and he voided and had a bm, assisted back to bed, assessed at this time, see shift assessment, denies pain or discomfort, took pills fine, denies further needs, call light and personal items within reach, will continue to monitor.
[2023-07-25 05:24] VITALS: BP 122/75; PULSE 60; TEMP 97.7
[2023-07-25 06:22] VITALS: BP_SYST 122
--- NOTE | 2023-07-25 07:40 | NUR ---
PT SITTING UP IN BED, EATING BREAKFAST, ALERT AND ORIENTEDX4. NO COMPLAINTS OF PAIN AT THIS TIME. PT GOT UP BATHROOM EARLIER THIS MORNING AND HAD A BOWEL MOVEMENT. ASSESSED AND GAVE MORNING MEDS. CALL LIGHT WITHIN REACH.
[2023-07-25 18:36] VITALS: BP 101/62; PULSE 59; TEMP 97.6
[2023-07-25 18:39] VITALS: BP_SYST 101
--- NOTE | 2023-07-25 20:25 | NUR ---
Patient sitting up in a chair and ready for bed, denies pain or discomfort, assessed at this time, assisted back to bed with x1 assist with walker and he did fine, denies further needs, call light and personal items within reach, will continue to monitor.
[2023-07-25 20:56] VITALS: BP 135/77; PULSE 63
[2023-07-26 05:36] VITALS: BP 154/81; PULSE 60; TEMP 97.5
[2023-07-26 06:10] VITALS: BP_SYST 154
--- NOTE | 2023-07-26 07:36 | NUR ---
Pt sitting up in bed, finishing breakfast. Pt is A&Ox4. VSS. S1S2. Clear lungs on RA. ABD is rounded, soft, non-tender with audible bowel sounds. Palpable pulses in all extremities with good strength. No IV access. Pt denies pain, headache, dizziness, n/v. BLE edema +1. Pt ambulated to to do personal hygiene at sink. Pt ambulated back to bed. Explained to Pt to move slowly and to completely turn and align self with seat prior to sitting. Pt has call light in reach and bed alarm on.
--- NOTE | 2023-07-26 11:01 | NUR ---
Notified by PCT, Pt had fall with OT. Per PCT, Pt faceplanted into chair. Pt did not turn around to sit and could not bend at knees. Pt denies pain. OT not sure if Pt hit head on wall. Pt assessment is WNL. Provider notified. Charge nurse notified. House Sup notified.
[2023-07-26 11:34] VITALS: BP 111/63; PULSE 59; TEMP 97.6
--- NOTE | 2023-07-26 12:27 | NUR ---
Pt sitting in bed side chair. Denies pain, dizziness, headaches. Pt finished lunch tray. Pt requested to talk with Dr Fraga when available about results of AM meeting. Notified Pt Dr Fraga is not available at the moment, but RN will let provider know. No further needs at this time. Call light in reach and chair alarm on.
--- NOTE | 2023-07-26 14:29 | NUR ---
SW met with patient to discuss notes from team conference today. Discussed team's concerns related to patient's need for 24 hour supervision, unsteadiness and impulsivity. Discussed family meeting scheduled for tomorrow at 0900 with and daughter to discuss discharge recomendations of SNF. Patient voiced his preference to return home and states his and daughter are with him all the time. Daughter has been staying with patient and maritime pilot per patient's report. Patient reports having been at [facility] in 2018 for 3 months and did not like being there and didn't feel it was beneficial. Discharge plan: Home with HH vs SNF
[2023-07-26 16:54] VITALS: BP 97/58; PULSE 60; TEMP 98.1
--- NOTE | 2023-07-26 17:01 | NUR ---
Pt sitting up in bedside chair. Denies pain, n/v, headache. No further needs at this time. Call light in reach and chair alarm on.
[2023-07-26 17:58] VITALS: BP_SYST 97
--- NOTE | 2023-07-26 19:08 | NUR ---
RECEIVED CHANGE OF SHIFT REPORT FROM DAY SHIFT NURSE. PATIENT UP IN CHAIR, EXIT ALARM ON, CALL LIGHT IN REACH. PATIENT DENIES ANY NEEDS OR CONCERNS AT TIME OF REPORT.
[2023-07-26 21:51] VITALS: BP 158/75; PULSE 64
--- NOTE | 2023-07-27 00:23 | NUR ---
Patient reported had semi loose stools this afternoon. Patient refused stool softeners and Miralax with HS meds.
[2023-07-27 05:39] VITALS: BP 144/81; PULSE 60; TEMP 98
[2023-07-27 06:00] VITALS: BP_SYST 144
--- NOTE | 2023-07-27 07:05 | NUR ---
Shift report received from night RN. Pt had witnessed fall yesterday while working w/ OT. Pt supervised as he stood independently to FWW. CGA provided as pt ambulated from bed to bathroom. Gait steady w/ FWW but wide stance noted during ambulation. Pt stumbled once in bathroom while trying to reach from FWW to grab bars but was able to correct his balance. Pt up to recliner after toileting. Denies pain/discomfort. Denies other needs. Call light in reach. Chair alarm in place.
--- NOTE | 2023-07-27 07:20 | NUR ---
CHANGE OF SHIFT REPORT GIVEN TO DAY SHIFT NURSENA
--- NOTE | 2023-07-27 08:01 | NUR ---
Miralax declined. Pt reports having a BM this morning.
--- NOTE | 2023-07-27 09:30 | NUR ---
Family meeting conducted w/ pt, , & daughter. Also present was the MD, OT, & ST. MD talked about medical & concerns w/ pt returning home at this time d/t extremely high risk for falls & serious injury, which could be life threatening. Therapists also talked about how pt s lack of balance, impulsiveness, & lack of safety awareness puts him at a higher risk of falling & having a severe injury. Pt/Family stated they understood. Discussed the recommendations for alf facility. [facility]. Pt/family was told referrals would be made & as soon as pt was accepted we would work on d/c ing him, so either end of week or early next week, which they stated they understood. The pt & family asked questions which the team answered. *SW covering IPR was informed of pt's decision & will submit the referrals.
--- NOTE | 2023-07-27 12:22 | NUR ---
Pt sitting up in recliner eating lunch independently. Denies any needs. Call light in reach. Chair alarm in place.
--- NOTE | 2023-07-27 14:45 | NUR ---
Pt sleeping in recliner w/ BLE elevated on footrest. Resps even & unlabored. Call light in reach. Chair alarm in place.
--- NOTE | 2023-07-27 15:18 | NUR ---
field worker met with patient to discuss SNF options. SW provided Medicare.gov list of options, Patient and family's first choice is [facility] and they were uncertain on second choice now that they could review the full list of options. JUANITO secure emailed referral to [facility]. JUANITO was notified by patient his second choice is [place]. Patient also stated he has an appointment at [facility] at 2 pm on 09/08/23 and he was needing to schedule his neurology appointment at [facility]. Patient gave the phone number for this appointment which is [phone], patient would like the appointment on 09/08/23 around 10 am if possible. SW contacted [facility] at [phone], no answer. JUANITO left detailed voicemail about patient's wishes for this appointment to be scheduled. [facility] asked about patient testing results from [facility]. JUANITO explained patient had relayed he has a follow up appointment on 09/08/23 at 2 pm and was trying to schedule another appointment with his neurologist at [facility] on 09/08/23 around 10 am but that was not set yet. JUANITO explained she did not feel they would have those results before discharge. Nohemi from [facility] explained she would get back to us. JUANITO was notified by [facility] that they would be able to accept patient tomorrow but did not have a time yet. JUANITO notified patient's , patient's daughter, IPR director and patient. Discharge plan: [facility]
[2023-07-27 17:31] VITALS: BP 127/69; PULSE 55; TEMP 97.6
[2023-07-27 17:33] VITALS: BP_SYST 127
--- NOTE | 2023-07-27 18:15 | NUR ---
Pt sitting in recliner watching tv. Denies pain/discomfort. Denies any needs. Call light in reach. Chair alarm in place.
--- NOTE | 2023-07-27 19:01 | NUR ---
RECEIVED CHANGE OF SHIFT REPORT FROM DAY SHIFT NURSE.
[2023-07-27 20:20] VITALS: BP 136/67; PULSE 60
--- NOTE | 2023-07-27 23:35 | NUR ---
RESTING IN BED WITH EYES CLOSED, BREATHING EVEN AND NONLABORED, EXIT ALARM ON, CALL LIGHT IN REACH.
[2023-07-28 05:32] VITALS: BP 132/70; PULSE 58; TEMP 97.9
[2023-07-28 05:48] VITALS: BP_SYST 132
--- NOTE | 2023-07-28 06:54 | NUR ---
Shift report received from night RN. No events reported overnight.
--- NOTE | 2023-07-28 06:57 | NUR ---
Change of shift report given to day shift nurseAnna.
--- NOTE | 2023-07-28 07:35 | NUR ---
Pt sitting up in bed watching tv after eating 100% of breakfast. Pt reports sleeping well overnight. Denies pain, discomfort, nausea this morning. Other needs denied. Call light in reach. Bed alarm on.
--- NOTE | 2023-07-28 08:35 | NUR ---
Pt up to toilet w/ OT. Pt requiring 2 person mod asst to transfer from toilet to wheelchair w/ FWW. Pt reports feeling weaker while sitting on toilet. Pt remains a/o x 4. Denies pain. Denies feeling dizzy or lightheaded. Radial pulse at 52 bpm. Will continue to monitor.
[2023-07-28 08:39] VITALS: PULSE 55
[2023-07-28 09:08] VITALS: BP 107/57; PULSE 64
--- NOTE | 2023-07-28 09:08 | NUR ---
Pt sitting up in recliner w/ BLE elevated on footrest. Pt reports continued feeling of weakness but is feeling better. See Vital signs. Other needs denied. Call light in reach. Chair alarm in place.
[2023-07-28] MEDS ORDERED: MIRALAX PA17 GM/Dose PO (10:41)
[2023-07-28] MEDS ORDERED: ZOFRAN ODT4 MG PO (10:41)
[2023-07-28] MEDS ORDERED: SENOKOT S 50 MG1 TAB PO (10:41)
[2023-07-28] MEDS ORDERED: ANTIVERT 25MG25 MG PO (10:41)
[2023-07-28] MEDS ORDERED: PROTONIX 40MG T40 MG PO (10:42)
[2023-07-28] MEDS ORDERED: B-121000 MCG PO (10:42)
--- NOTE | 2023-07-28 12:52 | NUR ---
Report called to ECTOR Ordonez at [facility]. DC packet prepared for [facility] transportation staff.
--- NOTE | 2023-07-28 13:28 | NUR ---
[facility] transportation here to escort pt off unit. Pt exited unit via wheelchair provided by [facility].
--- NOTE | 2023-07-28 13:51 | NUR ---
Discharge QIM scores were reviewed by the team. Code of 3 chosen for toileting hygiene was determined by team discussion to be the most usual performance for this patient during the discharge assessment period. Code of 3 chosen for toilet transfers was determined by team discussion to be the most usual performance for this patient during the discharge assessment period. Code of 5 chosen for upper body dressing was determined by team discussion to be the most usual performance for this patient during the discharge assessment period.--Katia Veliz, PD
--- NOTE | 2023-07-28 16:39 | NUR ---
industrial services worker was notified patient will be able to be transferred to [facility] today at 1 pm. SW notified patient's nurse, Katia [facility] director and patient. SW reviewd important message from Medicare. Patient understood and signed. SW made copy, placed original in chart and provided copy to patient. SW attempted to contact patient's , no answer. SW attempted to contact Arely, patient's daughter. JUANITO left detailed voicemail. JUANITO secure emailed updates and discharge orders. JUANITO was contacted by patient's , SW provided the update of patient transferring to [facility] at 1 pm. Discharge plan: [facility]
== END 2023-07-28 13:15 | DRG 74 ==
PROVIDERS: Internal Medicine; ADMIT Physical Medicine & Rehabilitation Sports Medicine
DX: G62.89 Other specified polyneuropathies (principal); I67.82 Cerebral ischemia; K86.2 Cyst of pancreas; I48.92 Unspecified atrial flutter; R53.81 Other malaise; R53.1 Weakness; R47.1 Dysarthria and anarthria; M21.372 Foot drop, left foot; E11.42 Type 2 diabetes mellitus with diabetic polyneuropathy; R49.0 Dysphonia; H02.402 Unspecified ptosis of left eyelid; R26.0 Ataxic gait; R29.898 Other symptoms and signs involving the musculoskeletal system; I48.0 Paroxysmal atrial fibrillation; G24.9 Dystonia, unspecified; M48.02 Spinal stenosis, cervical region; I10 Essential (primary) hypertension; Z86.73 Personal history of transient ischemic attack (TIA), and cerebral infarction without residual deficits; W19.XXXD Unspecified fall, subsequent encounter; Z79.01 Long term (current) use of anticoagulants; Z79.84 Long term (current) use of oral hypoglycemic drugs; Z77.098 Contact with and (suspected) exposure to other hazardous, chiefly nonmedicinal, chemicals; Z79.899 Other long term (current) drug therapy; Z74.09 Other reduced mobility; R11.10 Vomiting, unspecified; K59.00 Constipation, unspecified
CPT/HCPCS: J0282; J1815; J1920; J2405; J3420; J7060